=== PATIENT | female | born 1950 | race Two or more races ===

== ENCOUNTER 2024-01-10 22:59 | Emergency (ER) | payer OTHER, MEDICAID ==
[~2024-01-10] VITALS: Ht 152.4 cm; Wt 68.0 kg
[2024-01-11] VITALS: PULSE 70; RESP 22; O2SAT 91
[2024-01-11 00:47] VITALS: O2SAT 96
[2024-01-11 01:05] LABS: Alanine Aminotransferase 18 U/L (7-40); Alkaline Phosphatase 145 U/L (46-116); Anion Gap 10 (5-15); Aspartate Aminotransferase 20 U/L (13-40); BUN/Creatinine Ratio 9.6 (10.0-20.0); Basophils # (auto) 0.1 10 ^3/uL (0-0.2); Basophils % (auto) 1.3 % (0.0-2.0); Bilirubin, Total 0.2 mg/dL (0.2-1.0); Blood Alcohol 4.2 mg/dL (<10); Blood Urea Nitrogen 16 mg/dL (9-23); Calcium 8.9 mg/dL (8.5-10.1); Carbon Dioxide 18 mmol/L (20-30); Chloride 114 mmol/L (98-107); Eosinophils # (auto) 0.3 10 ^3/uL (0-0.8); Eosinophils % (auto) 4.2 % (0.0-7.0); Glucose 159 mg/dL (74-106); Hematocrit 37.2 % (36.0-46.0); Hemoglobin 12.2 g/dL (12.2-16.2); Lymphocytes # (auto) 1.6 10 ^3/uL (0.4-5.4); Lymphocytes % (auto) 24.6 % (10.0-50.0); Magnesium 1.9 mg/dL (1.6-2.6); Mean Corpuscular Hemoglobin 31.2 pg (28.0-32.0); Mean Corpuscular Hgb Conc. 32.9 g/dL (32.0-36.0); Monocytes # (auto) 0.5 10 ^3/uL (0-1.3); Monocytes % (auto) 7.2 % (0.0-12.0); Neutrophils # (auto) 4.2 10 ^3/uL (1.6-8.6); Neutrophils % (auto) 62.7 % (37.0-80.0); Nucleated Red Blood Cells % 0.1 %; Potassium 3.6 mmol/L (3.5-5.1); Red Blood Cells 3.91 10^6/uL (4.0-5.20); Sodium 142 mmol/L (136-145); Total Protein 6.7 g/dL (5.7-8.2); White Blood Cell 6.7 10^3/uL (4.4-10.8)
[2024-01-11 01:29] VITALS: BP 138/93; PULSE 62; RESP 13; TEMP 98.1
[2024-01-11 01:53] LABS: INR 1.03 (0.9-1.15); Partial Thromboplastin Time 22.1 SEC (24.5-34.5); Prothrombin Time 10.9 sec (9.3-11.8)
[2024-01-12] MEDS ORDERED: FAMO-12 PO (14:14)
[2024-01-12] MEDS ORDERED: LEVO75TA6 PO (14:14)
[2024-01-12] MEDS ORDERED: PARO1TAB33 PO (14:14)
[2024-01-12] MEDS ORDERED: ATOR20TA50 PO (14:14)
[2024-01-12] MEDS ORDERED: MEMA1TAB3 PO (14:14)
[2024-01-12] MEDS ORDERED: MIRT1TAB39 PO (14:14)
== END 2024-01-11 02:18 | disposition home or self-care (01) ==
LOC: EDBD 22:59 → ER 22:59
DX: R41.82 Altered mental status, unspecified (principal); F03.90 Unspecified dementia, unspecified severity, without behavioral disturbance, psychotic disturbance, mood disturbance, and anxiety; Z79.899 Other long term (current) drug therapy; Z79.01 Long term (current) use of anticoagulants
CPT/HCPCS: 36415; 80053; 80320; 83605; 83735; 84484; 85025; 85610; 85730; 87040; 93005

== ENCOUNTER 2024-01-12 09:51 | Inpatient (IN) | payer OTHER, MEDICARE, MEDICAID ==
[~2024-01-12] VITALS: Ht 165.1 cm; Wt 66.8 kg
[2024-01-12] MEDS: SODIUM CHLORIDE 0.9% 1,000 ML IV ONE (10:57)
[2024-01-12 11:14] LABS: Chloride 111 mmol/L (98-107); Potassium 3.8 mmol/L (3.5-5.1); Sodium 143 mmol/L (136-145)
[2024-01-12 11:15] LABS: Anion Gap 7 (5-15); Carbon Dioxide 25 mmol/L (20-30)
[2024-01-12 11:16] LABS: Calcium 9.9 mg/dL (8.5-10.1)
[2024-01-12 11:17] LABS: Basophils # (auto) 0.1 10 ^3/uL (0-0.2); Basophils % (auto) 0.5 % (0.0-2.0); Eosinophils # (auto) 0.2 10 ^3/uL (0-0.8); Eosinophils % (auto) 1.5 % (0.0-7.0); Hematocrit 39.2 % (36.0-46.0); Hemoglobin 13.2 g/dL (12.2-16.2); Lymphocytes # (auto) 2.4 10 ^3/uL (0.4-5.4); Mean Corpuscular Hemoglobin 31.5 pg (28.0-32.0); Mean Corpuscular Hgb Conc. 33.6 g/dL (32.0-36.0); Mean Corpuscular Volume 93.6 fL (80.0-100.0); Monocytes # (auto) 0.8 10 ^3/uL (0-1.3); Monocytes % (auto) 7.1 % (0.0-12.0); Neutrophils # (auto) 7.5 10 ^3/uL (1.6-8.6); Neutrophils % (auto) 68.9 % (37.0-80.0); Nucleated Red Blood Cells % 0.1 %; Red Blood Cells 4.19 10^6/uL (4.0-5.20); Red Cell Distribution Width 13.7 % (11.8-14.3); White Blood Cell 10.9 10^3/uL (4.4-10.8)
[2024-01-12 11:20] LABS: Blood Urea Nitrogen 16 mg/dL (9-23); Glucose 125 mg/dL (74-106)
[2024-01-12 11:21] LABS: Blood Alcohol < 3.0 mg/dL (<10)
[2024-01-12] MEDS ORDERED: MEMA1TAB3 PO (14:14)
[2024-01-12] MEDS ORDERED: ATOR20TA50 PO (14:14)
[2024-01-12] MEDS ORDERED: PARO1TAB33 PO (14:14)
[2024-01-12] MEDS ORDERED: LEVO75TA6 PO (14:14)
[2024-01-12] MEDS ORDERED: FAMO-12 PO (14:14)
[2024-01-12] MEDS ORDERED: MIRT1TAB39 PO (14:14)
[2024-01-12] MEDS: SODIUM CHLORIDE 0.9% 1,000 ML IV SCH (14:15)
[2024-01-12] MEDS ORDERED: ONDANSETRON HCL 4 MG/2 ML VIAL IV PRN (14:15)
[2024-01-12 15:38] LABS: Urine Bacteria None Seen /hpf (None Seen)
[2024-01-12 15:58] LABS: Urine Blood Negative /uL (Negative); Urine Clarity Clear (Clear); Urine Color Light-Yellow (Yellow); Urine Mucus FEW (None Seen); Urine Protein, UAD Negative (Negative); Urine Specific Gravity 1.015 (1.001-1.035); Urine Urobilinogen Normal (Negative); Urine WBC 1 /hpf (0 - 5); Urine pH 5.5 (5.0-9.0)
[2024-01-12 16:15] VITALS: RESP 18; O2SAT 97
[2024-01-12 20:00] VITALS: RESP 18; O2SAT 97
[2024-01-12 21:00] VITALS: BP 156/86; PULSE 55; RESP 20; TEMP 98; O2SAT 99
[2024-01-12] MEDS: hydrALAZINE HCL 20 MG/ML VL IV PRN (21:43)
[2024-01-12] MEDS: ATORVASTATIN 20 MG TAB PO SCH (21:46)
[2024-01-12] MEDS: FAMOTIDINE 20 MG TAB PO SCH (21:46)
[2024-01-13] VITALS (7 sets, daily range): BP systolic 107–157; BP diastolic 76–103; PULSE 60–82; RESP 18; TEMP 97.8–98.3; O2SAT 94–98
[2024-01-13] MEDS: LEVOTHYROXINE SODIUM 25 MCG TAB PO SCH (05:43)
[2024-01-13 06:36] LABS: Alanine Aminotransferase 15 U/L (7-40); Albumin 4.4 g/dL (3.2-4.8); Alkaline Phosphatase 150 U/L (46-116); Anion Gap 10 (5-15); Aspartate Aminotransferase 19 U/L (13-40); BUN/Creatinine Ratio 9.8 (10.0-20.0); Bilirubin, Total 0.6 mg/dL (0.2-1.0); Blood Urea Nitrogen 12 mg/dL (9-23); Calcium 9.6 mg/dL (8.5-10.1); Carbon Dioxide 22 mmol/L (20-30); Chloride 109 mmol/L (98-107); Glucose 115 mg/dL (74-106); Potassium 3.5 mmol/L (3.5-5.1); Sodium 141 mmol/L (136-145); Total Protein 7.3 g/dL (5.7-8.2)
[2024-01-13 06:56] LABS: Basophils # (auto) 0.1 10 ^3/uL (0-0.2); Basophils % (auto) 0.5 % (0.0-2.0); Eosinophils # (auto) 0.2 10 ^3/uL (0-0.8); Eosinophils % (auto) 2.3 % (0.0-7.0); Hematocrit 38.9 % (36.0-46.0); Hemoglobin 13.1 g/dL (12.2-16.2); Lymphocytes # (auto) 2.3 10 ^3/uL (0.4-5.4); Lymphocytes % (auto) 23.3 % (10.0-50.0); Mean Corpuscular Hemoglobin 31.4 pg (28.0-32.0); Mean Corpuscular Hgb Conc. 33.7 g/dL (32.0-36.0); Mean Corpuscular Volume 93.3 fL (80.0-100.0); Monocytes # (auto) 0.7 10 ^3/uL (0-1.3); Neutrophils # (auto) 6.5 10 ^3/uL (1.6-8.6); Neutrophils % (auto) 66.9 % (37.0-80.0); Nucleated Red Blood Cells % 0.1 %; Red Blood Cells 4.18 10^6/uL (4.0-5.20); Red Cell Distribution Width 13.7 % (11.8-14.3); White Blood Cell 9.8 10^3/uL (4.4-10.8)
[2024-01-13] MEDS: PARoxetine 20 MG TAB PO SCH (10:00)
[2024-01-13] MEDS: MIRTAZAPINE 30 MG TAB PO SCH (10:00)
[2024-01-13] MEDS: MEMANTINE HCL 5 MG TAB PO SCH (10:00)
[2024-01-13] MEDS: METOPROLOL TARTRATE 50 MG TAB PO ONE (13:00)
[2024-01-13] MEDS: METOPROLOL TARTRATE 50 MG TAB PO SCH (21:12)
[2024-01-14 00:54] VITALS: BP 139/91; PULSE 84; RESP 20; TEMP 98; O2SAT 95
[2024-01-14 05:00] VITALS: BP 141/93; PULSE 70; RESP 20; TEMP 98; O2SAT 94
[2024-01-14 08:00] VITALS: RESP 18; O2SAT 97
[2024-01-14 09:00] VITALS: BP 126/90; PULSE 79; RESP 18; TEMP 98.6; O2SAT 98
[2024-01-14 13:00] VITALS: BP 123/91; PULSE 77; RESP 18; TEMP 98.8; O2SAT 97
[2024-01-14] MEDS: LORazepam 2MG/ML-1ML VIAL IV PRN (15:34)
[2024-01-14 20:00] VITALS: PULSE 85; RESP 19; O2SAT 97
[2024-01-14] MEDS: MORPHINE SULFATE INJ 2 MG/ml SYRG IV PRN (21:27)
[2024-01-15] VITALS (8 sets, daily range): BP systolic 117–153; BP diastolic 76–95; PULSE 62–94; RESP 12–22; TEMP 97–98.3; O2SAT 91–97
[2024-01-16] VITALS (7 sets, daily range): BP systolic 119–153; BP diastolic 80–98; PULSE 61–94; RESP 14–18; TEMP 97.8–99.3; O2SAT 92–100
[2024-01-17 05:00] VITALS: BP 113/76; PULSE 50; RESP 19; TEMP 98.4; O2SAT 100
[2024-01-17 08:00] VITALS: PULSE 59; RESP 18; O2SAT 99
[2024-01-17 12:33] LABS: COVID19 ANTIGEN SOFIA FIA NEGATIVE (NEGATIVE)
[2024-01-17 14:15] VITALS: BP 121/79; PULSE 66; RESP 18; TEMP 97.4; O2SAT 98
[2024-01-17 15:53] VITALS: BP 139/90; PULSE 71; RESP 18; TEMP 97.9; O2SAT 99
[2024-01-17 16:27] VITALS: BP 135/90; PULSE 73; RESP 19; TEMP 97.7; O2SAT 98
[2024-01-17 20:00] VITALS: PULSE 73; RESP 16; O2SAT 98
== END 2024-01-17 20:49 | DRG 72 ==
LOC: ER 09:51 → EDBD 09:51 → OVERFLOW 14:12 → CENTRAL 16:05
PROVIDERS: ADMIT Family Medicine; ATTEND Family Medicine
DX: G93.41 Metabolic encephalopathy (principal); F03.90 Unspecified dementia, unspecified severity, without behavioral disturbance, psychotic disturbance, mood disturbance, and anxiety; E03.9 Hypothyroidism, unspecified; R62.7 Adult failure to thrive; I10 Essential (primary) hypertension; F32.9 Major depressive disorder, single episode, unspecified; E78.00 Pure hypercholesterolemia, unspecified; Z68.24 Body mass index [BMI] 24.0-24.9, adult
CPT/HCPCS: 36415; 71045; 80048; 80053; 80320; 81001; 84484; 85025; 87426; 92610; 93005; 96374; 97110; 97116; 97163; 97530; G0378